=== PATIENT | female | born 1950 | race Two or more races ===

== ENCOUNTER 2025-05-06 08:54 | Emergency (ER) | payer OTHER ==
[~2025-05-06] VITALS: Ht 152.4 cm; Wt 77.1 kg
[2025-05-06] MEDS ORDERED: KETOROLAC TROMETHAMINE INJ 30 MG/ML VIAL ONE (09:26)
[2025-05-06] MEDS ORDERED: LIDOCAINE 5% (PATCH) 1 EA PATCH TP ONE (09:26)
[2025-05-06] MEDS ORDERED: BACLOFEN (10 MG) 10 MG TABLET ONE (09:27)
[2025-05-06] MEDS: BACLOFEN (10 MG) 10 MG TABLET PO ONE (09:37)
[2025-05-06] MEDS: KETOROLAC TROMETHAMINE INJ 30 MG/ML VIAL IM ONE (09:37)
[2025-05-06] MEDS: LIDOCAINE 5% (PATCH) 1 EA PATCH TP SCH (09:38)
[2025-05-06] MEDS ORDERED: HYDROCODONE/APAP 5/325MG TABLET ONE (11:04)
[2025-05-06] MEDS: HYDROCODONE/APAP 5/325MG TABLET PO ONE (11:06)
[2025-05-06] MEDS ORDERED: KETO10TA2 PO (13:04)
[2025-05-06] MEDS ORDERED: BACL5TAB PO (13:04)
[2025-05-06] MEDS ORDERED: HYDR-4209 PO (13:04)
[2025-05-06 13:42] VITALS: BP 172/87; TEMP 97.8; O2SAT 100
== END 2025-05-06 13:44 | disposition home or self-care (01) ==
LOC: ER 09:08
DX: M54.41 Lumbago with sciatica, right side (principal); M51.26 Other intervertebral disc displacement, lumbar region; F03.90 Unspecified dementia, unspecified severity, without behavioral disturbance, psychotic disturbance, mood disturbance, and anxiety; E11.9 Type 2 diabetes mellitus without complications; J44.9 Chronic obstructive pulmonary disease, unspecified; I10 Essential (primary) hypertension
CPT/HCPCS: 99284; 96372; J1885; J2919